=== PATIENT | male | born 1970 | race Caucasian/White ===

== ENCOUNTER 2017-05-14 20:46 | Emergency (ER) | payer OTHER ==
--- NOTE | 2017-05-14 21:40 | XR ---
EXAMINATION TYPE: XR foot complete RT DATE OF EXAM: 05/14/2017 COMPARISON: NONE HISTORY: 46-year-old male with pain, rule out foreign body TECHNIQUE: 3 views FINDINGS: There may be a type II accessory navicular which can become symptomatic in some patients. No retained radiopaque foreign body seen. Tiny plantar calcaneal spur. No acute fracture, subluxation, or disloc ation. IMPRESSION: No acute osseous abnormality seen. No retained radiopaque foreign body identified.
--- NOTE | 2017-05-14 22:05 | ED ---
Skin/Abscess/FB HPI <Wayne Mercado - Last Filed: 05/14/17 22:27> - General Source: patient, RN notes reviewed Mode of arrival: ambulatory Limitations: no limitations <Michelle Mueller - Last Filed: 05/14/17 22:36> - General Chief complaint: Skin/Abscess/Foreign Body Stated complaint: foot injury Time Seen by Provider: 05/14/17 21:01 - History of Present Illness Initial comments: This is a 46-year-old male presents to the emergency department with chief complaint of foreign body in right foot. Patient admits he has a history of diabetes. Patient states that approximately 3 weeks ago he was walking outside at home and hurt the bottom of his right foot. He states that he has had pain with walking for the past couple of weeks. He is convinced that there is a foreign body lodged in his right heel. He states that today he inserted a nail file into the site on his foot that has been hurting him because it became inflamed. He states that yellow pus drained from the site. He was unable to remove the "foreign body." He believes it may be a piece of metal. Denies any other injuries or problems. Denies fever, chills, chest pain, shortness of breath, abdominal pain, nausea or vomiting, constipation or diarrhea, dysuria or hematuria, numbness or tingling, headache or vision changes. (Michelle Mueller) - Related Data Home Medications Medication Instructions Recorded Confirmed Lisinopril [Prinivil] 10 mg PO DAILY 05/07/15 05/07/15 Varenicline [Chantix] 1 mg PO BID 05/07/15 05/07/15 glyBURIDE/METFORMIN HCL 2 tab PO BID 05/07/15 05/07/15 [glyBURIDE/METFORMIN HCL 5-500 mg] Previous Rx's Medication Instructions Recorded Ibuprofen [Motrin] 800 mg PO Q8HR PRN #30 tab 05/07/15 Ciprofloxacin HCl [Cipro] 750 mg PO BID #20 tablet 05/14/17 Allergies Allergy/AdvReac Type Severity Reaction Status Date / Time amoxicillin AdvReac Unknown Verified 05/14/17 20:54 Review of Systems ROS Other: All systems not noted in ROS Statement are negative. <Wayne Mercado - Last Filed: 05/14/17 22:27> ROS Other: All systems not noted in ROS Statement are negative. <Michelle Mueller - Last Filed: 05/14/17 22:36> ROS Statement: Those systems with pertinent positive or pertinent negative responses have been documented in the HPI. Past Medical History Past Medical History: Diabetes Mellitus, Hypertension History of Any Multi-Drug Resistant Organisms: None Reported Past Surgical History: Back Surgery, Orthopedic Surgery Past Psychological History: No Psychological Hx Reported Smoking Status: Current every day smoker Past Alcohol Use History: Occasional Past Drug Use History: None Reported <Hank Muellercory Loza - Last Filed: 05/14/17 22:36> General Exam <Wayne Mercado - Last Filed: 05/14/17 22:27> Limitations: no limitations <Hank Muelleristin Denia - Last Filed: 05/14/17 22:36> - General Exam Comments Initial Comments: General: Awake and alert, well-developed; in no apparent distress. HEENT: Head atraumatic, normocephalic. Pupils are equal, round and reactive to light. Extraocular movements intact. Oropharynx moist without erythema or exudate. Neck: Supple. Normal ROM. Cardiovascular: Regular rate and rhythm. No murmurs, rubs or gallops. Chest symmetrical. Respiratory: Lungs clear to auscultation bilaterally. No wheezes, rales or rhonchi. Normal respiratory effort with no use of accessory muscles. Musculoskeletal: Normal active ROM of right foot. Sensation is intact. Pedal pulses 2+ equal and palpable bilaterally. Skin: [place], warm and dry without rashes. Puncture-like wound right heel. Bleeding is minimal. Neurological: Alert and oriented x3. CN II-XII grossly intact. Speech is fluent and answers are appropriate. No focal neuro deficits. Psychiatric: Normal mood and affect. No overt signs of depression or anxiety noted. (Paddock LakeHank arreolaMichelle M) Vital Signs 05/14/17 20:50 Temperature 97.7 F Pulse Rate 123 H Respiratory 18 Rate Blood Pressure 144/80 O2 Sat by Pulse 98 Oximetry Medical Decision Making <Wayne Mercado - Last Filed: 05/14/17 22:27> - Radiology Data Radiology results: report reviewed <Hank Muellercory Loza - Last Filed: 05/14/17 22:36> - Medical Decision Making Medical decision-making. This is a 46-year-old male who is diabetic. Had a painful heel. He stuck a blunt blade and drained an abscess on his heel. X- ray does not show radiopaque foreign body though non-radiopaque foreign body is suspected. The PA anesthetized and made another cut small amount of floaters removed. No foreign body removed. Patient refused to allow any more examination or manipulation or reinjection. He has a large callus in this area. The patient be placed on antibiotic. Told to put his foot in warm to hot soaks several times daily. Follow-up with his family physician or return emergency room. The patient will not allow further drainage. Patient was told that this could lead to worsening infection. Dr. Mercado (Wayne Mercado) This is a 46-year-old male with a history of diabetes who presents to the emergency department for evaluation of suspected foreign body in his right heel. X-ray was obtained revealing no evidence for radiopaque foreign object. Patient stated that today he had yellow drainage from his right heel after poking it with a nail file. Patient requested that I cut it open and explore the wound for a foreign body. He he stated if not, he would return home and cut it open himself. A superficial incision was made revealing a deeper puncture wound with some debris noted. The wound was irrigated with sterile water. Patient tolerated this well without complication. This case was then discussed with attending physician, Dr. Mercado who recommended that he have a look at the wound himself. Patient refused to have lidocaine injected with a needle. Patient will be discharged home AMA. He'll be provided with a prescription for antibiotics. (Michelle Mueller) - Radiology Data X-ray right foot impression: No acute osseous abnormality seen. No retained radiopaque foreign body identified. (Michelle Mueller) Disposition <Wayne Mercado - Last Filed: 05/14/17 22:27> Time of Disposition: 22:36 <Michelle Mueller - Last Filed: 05/14/17 22:36> Clinical Impression: Puncture wound of heel Disposition: Left Against Medical Advice Condition: Good Instructions: Puncture Wound (ED) Additional Instructions: Please do warm water soaks of the right foot several times daily. Please take medications as prescribed. Please follow up with primary care provider within 1- 2 days. Return to emergency department if symptoms should worsen or any concerns arise. Prescriptions: Ciprofloxacin HCl [Cipro] 750 mg PO BID #20 tablet Referrals: Nonstaff,Physician [Primary Care Provider] - 1-2 days
[2017-05-14 22:47] VITALS: BP 136/86; PULSE 108; RESP 17; TEMP 98.3
== END 2017-05-14 22:47 | disposition left against medical advice (07) ==
LOC: EC 20:46
DX: S91.331A Puncture wound without foreign body, right foot, initial encounter (principal); E11.9 Type 2 diabetes mellitus without complications; I10 Essential (primary) hypertension; F17.200 Nicotine dependence, unspecified, uncomplicated; Z53.29 Procedure and treatment not carried out because of patient's decision for other reasons; Z98.890 Other specified postprocedural states; Z88.0 Allergy status to penicillin; Z79.84 Long term (current) use of oral hypoglycemic drugs; Z79.899 Other long term (current) drug therapy; W45.8XXA Other foreign body or object entering through skin, initial encounter
CPT/HCPCS: 99283

== ENCOUNTER 2017-08-19 10:10 | Emergency (ER) | payer OTHER ==
[2017-08-19 10:13] VITALS: BP 176/96; PULSE 104; RESP 20; TEMP 98
[2017-08-19] MEDS ORDERED: CEPHALEXIN 500MG STARTER PACK 4 CAP BTL PO STA (10:44)
[2017-08-19] MEDS ORDERED: IBUPROFEN 800 MG TAB PO STA (10:44)
--- NOTE | 2017-08-19 11:12 | ED ---
ENT HPI - General Chief complaint: Dental/Oral Stated complaint: Tooth pain Time Seen by Provider: 08/19/17 10:38 Source: patient, RN notes reviewed Mode of arrival: ambulatory Limitations: no limitations - History of Present Illness Initial comments: This is a 47-year-old male who states he has bad dentition who states she's had 1 or 2 weeks pain is right mandible area. He denies any drainage or discharge fevers chills or sweats just pain. He does have an appointment to see a dentist but this is not for about another week. He has no other complaints this time no head neck or back pain he has since broken teeth and some eroded teeth he states. He states he has problems with amoxicillin makes him sleepy but no true ALLERGIES to anything else. MD complaint: tooth pain - Related Data Home Medications Medication Instructions Recorded Confirmed Lisinopril [Prinivil] 10 mg PO DAILY 05/07/15 05/07/15 Varenicline [Chantix] 1 mg PO BID 05/07/15 05/07/15 glyBURIDE/METFORMIN HCL 2 tab PO BID 05/07/15 05/07/15 [glyBURIDE/METFORMIN HCL 5-500 mg] Previous Rx's Medication Instructions Recorded Ibuprofen [Motrin] 800 mg PO Q8HR PRN #30 tab 05/07/15 Ciprofloxacin HCl [Cipro] 750 mg PO BID #20 tablet 05/14/17 Cephalexin [Keflex] 500 mg PO Q6HR #40 cap 08/19/17 Ibuprofen 800 mg PO Q6HR PRN #20 tablet 08/19/17 Allergies Allergy/AdvReac Type Severity Reaction Status Date / Time amoxicillin AdvReac Unknown Verified 08/19/17 10:13 Review of Systems ROS Statement: Those systems with pertinent positive or pertinent negative responses have been documented in the HPI. ROS Other: All systems not noted in ROS Statement are negative. Past Medical History Past Medical History: Diabetes Mellitus, Hypertension History of Any Multi-Drug Resistant Organisms: None Reported Past Surgical History: Back Surgery, Orthopedic Surgery Past Psychological History: No Psychological Hx Reported Smoking Status: Current every day smoker Past Alcohol Use History: Occasional Past Drug Use History: None Reported General Exam - General Exam Comments Initial Comments: This is a well-developed well-nourished awake alert oriented 3 male Limitations: no limitations General appearance: alert, in no apparent distress Head exam: Present: atraumatic, normocephalic, normal inspection Eye exam: Present: normal appearance, PERRL, EOMI. Absent: scleral icterus, conjunctival injection, periorbital swelling ENT exam: Present: mucous membranes moist, other (Patient does demonstrate some eroded teeth and some dental caries especially on the right lower incisor and molars. This is especially evident at tooth #27 site as well as 29 and 30. No drainage or discharge) Neck exam: Present: normal inspection. Absent: tenderness, meningismus, lymphadenopathy Respiratory exam: Present: normal lung sounds bilaterally. Absent: respiratory distress, wheezes, rales, rhonchi, stridor Cardiovascular Exam: Present: regular rate, normal rhythm, normal heart sounds. Absent: systolic murmur, diastolic murmur, rubs, gallop, clicks Extremities exam: Present: normal inspection, full ROM, normal capillary refill. Absent: tenderness, pedal edema, joint swelling, calf tenderness Back exam: Present: normal inspection Neurological exam: Present: alert, oriented X3, CN II-XII intact Psychiatric exam: Present: normal affect, normal mood Skin exam: Present: warm, dry, intact, normal color. Absent: rash Course Vital Signs 08/19/17 10:12 Temperature 98.0 F Pulse Rate 104 H Respiratory 20 Rate Blood Pressure 176/96 O2 Sat by Pulse 100 Oximetry Medical Decision Making - Medical Decision Making No further workup is indicated at this time the patient be discharged on appropriate pain medication and antibiotics he is to keep his follow-up with his dentist. Early abscess is considered though no drainable center noted on exam Disposition Clinical Impression: Dental implant pain Disposition: HOME SELF-CARE Condition: Good Instructions: Dental Caries (ED), Toothache (ED), Dental Abscess (ED) Prescriptions: Cephalexin [Keflex] 500 mg PO Q6HR #40 cap Ibuprofen 800 mg PO Q6HR PRN #20 tablet PRN Reason: Pain Referrals: None,Stated [Primary Care Provider] - 1-2 days
== END 2017-08-19 11:30 | disposition home or self-care (01) ==
LOC: EC 10:10
DX: M27.69 Other endosseous dental implant failure (principal); E11.9 Type 2 diabetes mellitus without complications; I10 Essential (primary) hypertension; F17.200 Nicotine dependence, unspecified, uncomplicated; Z79.84 Long term (current) use of oral hypoglycemic drugs; Z79.899 Other long term (current) drug therapy; Z88.0 Allergy status to penicillin
CPT/HCPCS: 99282

== ENCOUNTER 2017-08-20 06:12 | Emergency (ER) | payer SELFPAY ==
[2017-08-20 06:18] VITALS: BP 157/92; PULSE 100; RESP 20; TEMP 97.5
[2017-08-20] MEDS ORDERED: HYDROcodone/APAP 7.5-325MG 1 EACH TAB PO ONE (06:43)
[2017-08-20] MEDS ORDERED: CLINDAMYCIN 150 MG CAP PO STA (06:45)
--- NOTE | 2017-08-20 06:45 | ED ---
ENT HPI - General Chief complaint: Dental/Oral Stated complaint: Dental Pain/Abscess Time Seen by Provider: 08/20/17 06:23 Source: patient Mode of arrival: ambulatory Limitations: no limitations - History of Present Illness Initial comments: This patient is a 47-year-old man who presents to be evaluate for right mandibular pain and swelling. He was seen here yesterday for the same, given antibiotics and has not had improvement, stating that there is been an increase in swelling. The patient states that his symptoms started 3-4 days ago with some aching pain. Pain is constant, severe , worse with attempting to chew things and with temperature. He has not noted much in way of relieving factors. MD complaint: tooth pain -: days(s) Location: tooth # (28) Severity: severe Quality: aching Consistency: constant Improves with: none Worsens with: other Context- Dental: history of dental caries Associated Symptoms: gum swelling, toothache - Related Data Home Medications Medication Instructions Recorded Confirmed Lisinopril [Prinivil] 10 mg PO DAILY 05/07/15 08/20/17 Varenicline [Chantix] 1 mg PO BID 05/07/15 08/20/17 glyBURIDE/METFORMIN HCL 2 tab PO BID 05/07/15 08/20/17 [glyBURIDE/METFORMIN HCL 5-500 mg] Previous Rx's Medication Instructions Recorded Ibuprofen [Motrin] 800 mg PO Q8HR PRN #30 tab 05/07/15 Cephalexin [Keflex] 500 mg PO Q6HR #40 cap 08/19/17 Ibuprofen 800 mg PO Q6HR PRN #20 tablet 08/19/17 Clindamycin [Cleocin] 150 mg PO Q6H #28 capsule 08/20/17 Hydrocodone/Acetaminophen [[place] 1 each PO Q6HR PRN #20 tab 08/20/17 5-325] Allergies Allergy/AdvReac Type Severity Reaction Status Date / Time amoxicillin AdvReac Unknown Verified 08/19/17 10:13 Review of Systems ROS Statement: Those systems with pertinent positive or pertinent negative responses have been documented in the HPI. ROS Other: All systems not noted in ROS Statement are negative. Constitutional: Denies: fever, chills Eyes: Denies: eye pain, vision change ENT: Reports: dental pain. Denies: ear pain, throat pain Respiratory: Denies: cough, dyspnea Cardiovascular: Denies: palpitations Skin: Denies: rash Neurological: Denies: headache Past Medical History Past Medical History: Diabetes Mellitus, Hypertension History of Any Multi-Drug Resistant Organisms: None Reported Past Surgical History: Back Surgery, Orthopedic Surgery Past Psychological History: No Psychological Hx Reported Smoking Status: Current every day smoker Past Alcohol Use History: Occasional Past Drug Use History: None Reported General Exam Limitations: no limitations General appearance: alert, in no apparent distress Eye exam: Present: normal appearance, EOMI. Absent: scleral icterus, conjunctival injection ENT exam: Present: other (The patient has abscess which is coming to a point adjacent to tooth #27. Poor dentition.) Neck exam: Present: normal inspection, full ROM. Absent: tenderness, meningismus, lymphadenopathy Respiratory exam: Present: normal lung sounds bilaterally. Absent: respiratory distress, wheezes, rales, rhonchi, stridor Course Vital Signs 08/20/17 06:15 Temperature 97.5 F L Pulse Rate 100 Respiratory 20 Rate Blood Pressure 157/92 O2 Sat by Pulse 99 Oximetry Procedures - Incision & Drainage Consent Obtained: verbal consent Time Out Performed?: Yes Site: oral Anesthetic Used: lidocaine 1% Scalpel Used: #11 Needle Aspiration Performed?: Yes I&D Drainage Obtained: Pus, Blood Patient Tolerated Procedure: well Medical Decision Making - Medical Decision Making Patient has dental abscess that is coming to a point. I did place 1 mL of lidocaine as inferior alveolar block and then small amount of lidocaine where the abscess is pointing. I then performed a needle aspiration followed by a small stab incision with a #11 scalpel which did result in proximally two mL of pus and then a small amount of bleeding. The patient did have some relief. Is given some additional analgesia for home and provided clindamycin for increased spectrum of coverage. Discussed return parameters and appropriate follow-up. Patient tolerated seizure well. Disposition Clinical Impression: Dental abscess Disposition: HOME SELF-CARE Condition: Fair Instructions: Dental Abscess (ED) Prescriptions: Clindamycin [Cleocin] 150 mg PO Q6H #28 capsule Hydrocodone/Acetaminophen [[place] 5-325] 1 each PO Q6HR PRN #20 tab PRN Reason: Pain Referrals: None,Stated [Primary Care Provider] - 1-2 days
== END 2017-08-20 06:56 | disposition home or self-care (01) ==
LOC: EC 06:12
DX: K04.7 Periapical abscess without sinus (principal); E11.9 Type 2 diabetes mellitus without complications; I10 Essential (primary) hypertension; F17.200 Nicotine dependence, unspecified, uncomplicated; Z79.84 Long term (current) use of oral hypoglycemic drugs; Z79.899 Other long term (current) drug therapy; Z88.0 Allergy status to penicillin
CPT/HCPCS: 41800; 99282